=== PATIENT | female | born 2000 | race Hispanic/Latino ===

== ENCOUNTER 2025-05-24 23:21 | Observation (INO) | payer OTHER, SELFPAY ==
[2025-05-24 19:27] VITALS: BP 126/83
[2025-05-24 20:32] VITALS: BMI 34.4
[2025-05-24 20:34] VITALS: BP 133/89
[2025-05-24] MEDS: PERCOCET 5/325 1 TABLET PO (20:57)
[2025-05-24] MEDS: MOTRIN 600 MG PO (20:58)
--- NOTE | 2025-05-24 21:44 | ED.SKININJ ---
HPI-Injury
<Ana Luisa Magallanes, GENERAL MANA[employer] [employer] - Last Filed: 05/24/25 22:56>
General
Chief Complaint: Ear Problem
Time Seen by Provider: 05/24/25 20:07
History of Present Illness-Injury
Initial Injury comments:
24-year-old female with no past medical history states that a week ago she developed discomfort in her right ear that gradually became worse and 3 days ago it was unbearable pain. She went to urgent care and was given cefprozil 500 mg twice daily
and has had a total of 6 doses with worsening symptoms. She denies fever, denies N/V.
She states the ear hurts, behind the ear hurts and the right side of her neck hurts, it hurts to swallow, the ear has been draining purulent drainage.
Past History
<Ana Luisa Magallanes, GENER[employer] [address] [employer] - Last Filed: 05/24/25 22:56>
Past History
ED Past Medical History: None
Social History
Tobacco: Non-smoker
Alcohol: None
Personal: Single
Living: with roommate
Employment: Employed
Review of Systems
<Ana Luisa Magallanes, GENER[employer] [employer] - Last Filed: 05/24/25 22:56>
Review of Systems
Allergies reviewed?: Yes
All Other Systems: ROS reviewed and negative except as documented in HPI and ROS
Constitutional: Denies fever or chills
EENT: Reports sore throat (hurts to swallow, right ear pain, behind ear pain) and other (Purulent drainage from right ear)
Respiratory: Denies cough or trouble breathing
Cardiac: Denies chest pain
ABD/GI: Denies abdominal pain, nausea, vomiting or diarrhea
Skin: Reports no symptoms
Neurological: Reports headache
Phy Exam
<Ana Luisa Magallanes, [employer] [address] [employer] - Last Filed: 05/24/25 22:56>
Physical Exam
Physical Exam:
GENERAL: Moderate distress, crying due to significant right ear pain.. A&Ox3.
CONSTITUTIONAL: Afebrile.
EYES: clear, conjunctivae normal, tearful
ENMT: moist mucus membranes, no trismus, pharynx nl. Right ear canal with yellowish exudate dripping out of the ear. The canal is swollen, a small amount of the TM is visible
Neck: Supple, mild tender right submandibular lymphadenopathy
RESPIRATORY: Regular respirations, nonlabored, lungs clear.
CARDIOVASCULAR: Regular rate and rhythm, no murmurs, no rubs.
GI: Soft, nontender, normal BS
MUSCULOSKELETAL: Moves with ease. Well perfused.
SKIN: Warm, dry, pink
PSYCH: Normal mood and affect. Well kept, interactive and appropriate
NEUROLOGIC: Awake, alert and oriented. No focal neurological deficits
Course
<Ana Luisa Magallanes, [employer] [address] [employer] - Last Filed: 05/24/25 22:56>
Orders/Labs/Results
Orders:
Orders
05/24/25 20:47
Ibuprofen [Motrin] 600 mg PO NOW STA
Oxycodone/Acetaminophen [Percocet 5/325] 1 tablet PO NOW STA
05/24/25 21:40
CT Temporal-iac W/o Iv Contras Urgent
Comment:
Reason For Exam: severe R ear infection, tender mastoid
Test Result ONCE
05/24/25 21:45
Complete Blood Count/With Diff Urgent
05/24/25 21:46
0.9% Sodium Chloride 1000 ml [Nss] 1,000 ml IV BOLUS
05/24/25 22:28
Comprehensive Metabolic Panel Urgent
HCG, Serum Qualitative Screen Urgent
05/24/25 22:34
Ofloxacin [Ocuflox] See Dose Instructions OTIC NOW STA
05/24/25 22:35
Cefepime HCl [Maxipime] 1,000 mg IV NOW STA
05/24/25 22:42
Sterile Water [Sterile Water For Injection] 10 ml .ROUTE .STK-MED ONE
05/24/25 22:44
ENT CONSULT Urgent
Consulting Provider: Teresa Nunez
Was physician already notified: Yes
Reason for Consult: Otitis media, otitis externa, mild mastoiditis, failing outpatient antibiot
Abnormal Lab Results
05/24/25
21:45
WBC 14.2 H 10^3/uL
(4.8-10.8)
MCH 31.1 H pg
(27.0-31.0)
Abs Immat Gran (auto) 0.1 H 10^3/uL
(0-0.05)
Absolute Neuts (auto) 11.1 H 10^3/uL
(1.4-6.5)
Absolute Monos (auto) 1.1 H 10^3/uL
(0.1-0.6)
Neutrophils % 78.0 H %
(42.2-75.2)
Lymphocytes % 12.6 L %
(20.5-51.1)
05/24/25 21:45
Vital Signs
Initial and Last Documented VS:
Initial Vital Signs
Temp Pulse Resp BP Pulse Ox
98.8 F 101 18 126/83 99
05/24/25 19:27 05/24/25 19:27 05/24/25 19:27 05/24/25 19:27 05/24/25 19:27
Last Documented Vital Signs
Temp Pulse Resp BP Pulse Ox
98.8 F 114 16 116/77 100
05/24/25 19:27 05/24/25 22:30 05/24/25 22:30 05/24/25 22:30 05/24/25 22:30
<Edi Chmapagne MD - Last Filed: 05/24/25 22:37>
Orders/Labs/Results
Orders:
Orders
05/24/25 20:47
Ibuprofen [Motrin] 600 mg PO NOW STA
Oxycodone/Acetaminophen [Percocet 5/325] 1 tablet PO NOW STA
05/24/25 21:40
CT Temporal-iac W/o Iv Contras Urgent
Comment:
Reason For Exam: severe R ear infection, tender mastoid
Test Result ONCE
05/24/25 21:45
Complete Blood Count/With Diff Urgent
05/24/25 21:46
0.9% Sodium Chloride 1000 ml [Nss] 1,000 ml IV BOLUS
05/24/25 22:28
Comprehensive Metabolic Panel Urgent
HCG, Serum Qualitative Screen Urgent
05/24/25 22:34
Ofloxacin [Ocuflox] See Dose Instructions OTIC NOW STA
05/24/25 22:35
Cefepime HCl [Maxipime] 1,000 mg IV NOW STA
05/24/25 22:42
Sterile Water [Sterile Water For Injection] 10 ml .ROUTE .STK-MED ONE
05/24/25 22:44
ENT CONSULT Urgent
Consulting Provider: Teresa Nunez
Was physician already notified: Yes
Reason for Consult: Otitis media, otitis externa, mild mastoiditis, failing outpatient antibiot
Abnormal Lab Results
05/24/25
21:45
WBC 14.2 H 10^3/uL
(4.8-10.8)
MCH 31.1 H pg
(27.0-31.0)
Abs Immat Gran (auto) 0.1 H 10^3/uL
(0-0.05)
Absolute Neuts (auto) 11.1 H 10^3/uL
(1.4-6.5)
Absolute Monos (auto) 1.1 H 10^3/uL
(0.1-0.6)
Neutrophils % 78.0 H %
(42.2-75.2)
Lymphocytes % 12.6 L %
(20.5-51.1)
05/24/25 21:45
Vital Signs
Initial and Last Documented VS:
Initial Vital Signs
Temp Pulse Resp BP Pulse Ox
98.8 F 101 18 126/83 99
05/24/25 19:27 05/24/25 19:27 05/24/25 19:05/24/25 19:05/24/25 19:27
Last Documented Vital Signs
Temp Pulse Resp BP Pulse Ox
98.8 F 114 16 116/77 100
05/24/25 19:27 05/24/25 22:30 05/24/25 22:30 05/24/25 22:30 05/24/25 22:30
<Ana Luisa Magallanes, GENER[employer] MA[employer] [address] [employer] - Last Filed: 05/24/25 22:56>
MDM/Problems Addressed
MDM/Problems Addressed:
24-year-old female with no past medical history states that a week ago she developed discomfort in her right ear that gradually became worse and 3 days ago it was unbearable pain. She went to urgent care and was given cefprozil 500 mg twice daily
and has had a total of 6 doses with worsening symptoms. She denies fever, denies N/V.
She states the ear hurts, behind the ear hurts and the right side of her neck hurts, it hurts to swallow, the ear has been draining purulent drainage.
Afebrile
CBC: WBC 14.2
CMP pending
CAT scan of the temporal area radiology report reviewed: IMPRESSION: Soft tissue density in the right external ear canal, resulting in significant narrowing, suggestive of right otitis externa. There is also soft tissue density within the right
middle ear, suggesting right otitis media.
Mild opacification of the right mastoid air cells, suggesting mild right mastoiditis. No evidence for bony destruction.
Case discussed with Dr. Champagne who evaluated patient, agrees that patient should be admitted for IV antibiotics as she is failing outpatient antibiotics
Hospitalist and ENT Dr. Nunez notified of admission.
Patient is more comfortable after Percocet and ibuprofen.
IV antibiotics started, Antibiotic ear drops started.
<Ana Luisa Magallanes [address] [employer] - Last Filed: 05/24/25 22:56>
*Pulse Oximetry
SaO2: 100
Oxygen Mode of Delivery: Room air
Patient hypoxic: no
*Critical Care Note
Total Time (30-74mins, 75-104mins- exclusive of procedures): Not Applicable
ED Attending Note
<Ana Luisa Magallanes, [employer] [address] [employer] - Last Filed: 05/24/25 22:56>
-
Portions of this chart may have been created with voice recognition software.� Occasional wrong word or��sound alike� substitutions may have occurred due to the inherent limitations of voice recognition software.
<Edi Champagne MD - Last Filed: 05/24/25 22:37>
ED Attending Note
Patient seen and examined by attending physician: Yes
I performed the substantive portion of visit, reviewed & personally made and approve the management plan that is documented in note by myself or EDGAR.: Yes
ED Attending Note:
Patient with progressive right ear pain and drainage over 3 to 4 days. Started cephalosporin a day and a half ago. Some systemic symptoms.
On exam patient is nontoxic. Drainage from the right ear with swelling of the pinna and discharge in the canal. Tenderness over the right mastoid.
Labs shows a leukocytosis. CT scan shows right otitis media externa and mastoiditis.
Warrants inpatient IV antibiotics. Drops responsive to Pseudomonas coverage.
Discharge Plan
Departure
Patient Disposition: Admit
Date of Disposition: 05/24/25
Time of Disposition: 22:36
Admit to: Med/Surg
Presentation/result/management discussed w/ accepting MD/DO: Hospitalist
Condition: Fair
Discharge Problem:
Acute Otitis Externa, Acute otitis media, Mastoiditis of right side
Prescriptions:
No Action
cefprozil 500 mg Tablet
500 mg PO BID
acetaminophen [Tylenol Ex Str Rapid Release] 500 mg Tablet
1,000 mg PO Q6H PRN (Reason: pain)
ibuprofen [Advil] 200 mg Tablet
400 mg PO Q6H PRN (Reason: pain)
Referrals:
Andi Nicole MD [Family Provider, Internal Medicine]
Interventions
Interventions:
*Risk Screen - Suicide Last Done: 05/24/25 19:24
*General Assessment Last Done: 05/24/25 19:24
*Neglect/Abuse Screening Last Done: 05/24/25 19:24
*ED- Fall Risk Assessment Last Done: 05/24/25 19:24
*ED COVID-19 Vaccine History Last Done: 05/24/25 19:24
Discharge Date and Time
Print Language: BAHRAINI
[2025-05-24] MEDS: NSS 1000 IV (21:51)
[2025-05-24 22:02] LABS: Hematocrit 39.2 % (37.0-47.0); Hemoglobin 13.3 g/dL (12.0-16.0); Mean Corp Hgb Conc. 33.9 g/dL (33.0-37.0); Mean Corpuscular Volume 91.6 fL (81.0-99.0); Nucleated Red Blood Cells % 0 %; Platelet Count 204 10^3/uL (130-400); Red Cell Dist. Width 12.3 % (11.5-14.5)
[2025-05-24 22:30] VITALS: BP 116/77
--- NOTE | 2025-05-24 22:43 | HPS.HSE ---
Family Physician
-
Family Physician: Andi Nicole MD
Chief Complaint
-
Rt ear discomfort
History of Present Illness
24F No PMHx seen at ER:
- a week ago onset of discomfort in her right ear that gradually became worse and 3 days ago it was unbearable pain.
- seen at urgent care and was given cefprozil 500 mg twice daily and has had a total of 6 doses with worsening symptoms.
- She denies fever, denies N/V.
- behind the ear hurts and the right side of her neck hurts, it hurts to swallow, the ear has been draining purulent drainage.
Medical History
Past Medical History
Past Medical History: Reports None
Past Surgical History: Reports None
Social History
Tobacco: Non-smoker
Alcohol: None
Personal: Single
Employment: Employed
Family History
Family History: Not pertinent
Allergies / Home Medications
Allergies reflects when Allergies were last updated in [employer].
Home Medications with original date entered in [employer]
Allergy/Medication List:
Allergies
Allergy/AdvReac Type Severity Reaction Status Date / Time
No Known Allergies Allergy Verified 05/24/25 19:27
Home Medications
acetaminophen 500 mg tablet 1,000 mg PO Q6H PRN pain 05/24/25
cefprozil 500 mg tablet 500 mg PO BID 05/24/25
ibuprofen 200 mg tablet (Advil) 400 mg PO Q6H PRN pain 05/24/25
Review of Systems
-
Constitutional: Reports No Symptoms
EENT: Reports See HPI
Respiratory: Reports No Symptoms
Cardiac: Reports No Symptoms
Abdomen/GI: Reports No Symptoms
: Reports No Symptoms
Musculoskeletal: Reports No Symptoms
Skin: Reports No Symptoms
Neurological: Reports No Symptoms
Endocrine: Reports No Symptoms
Hematologic/Lymphatic: Reports No Symptoms
Psych: Reports No Symptoms
Physical Exam
Vital Signs
Vital Signs
Temp Pulse Resp BP Pulse Ox
98.8 F 114 16 116/77 100
05/24/25 19:27 05/24/25 22:30 05/24/25 22:30 05/24/25 22:30 05/24/25 22:30
Physical Exam
General: Other (Moderate distress, crying due to significant right ear pain..)
HEENT: Moist mucous membranes and Other (Right ear ext auditory meatus canal- yellowish exudate dripping out of the ear. The canal is swollen, a small amount of the TM is visible)
Respiratory: Clear
Cardiac: S1/S2 and Regular Rhythm
GI: Soft, Non Tender and Non Distended
Rectal: Deferred by Provider
Genito-urinary: Deferred by me
Musculoskeletal: No Edema
Skin: Warm and Dry
Neuro: AO x 3
Psych: Anxious
Laboratory Results
-
05/24/25 21:45
Laboratory Results
Total Bilirubin Cancelled 05/24/25 21:45
AST Cancelled 05/24/25 21:45
ALT Cancelled 05/24/25 21:45
Alkaline Phosphatase Cancelled 05/24/25 21:45
Data Reviewed
-
CT Scan: Report Reviewed by me
Lab Data: Labs Reviewed by me
Impression/Plan
-
Relevant Data
05/24/25
21:45
WBC 14.2 H
Pending BMP
CT Temporal-iac W/o Iv Contrast
- Soft tissue density in the right external ear canal, resulting in significant narrowing, suggestive of right otitis externa.
- There is also soft tissue density within the right middle ear, suggesting right otitis media.
- Mild opacification of the right mastoid air cells, suggesting mild right mastoiditis. No evidence for bony destruction.
ASSESSMENT & PLAN
Acute R otitis externa - failed OP Cefprozil
- associated preauricular tragus severe tenderness and swelling plus post auricular moderate tenderness
- Associated CT suggestion of R otitis media.
- Mild opacification of the right mastoid air cells, suggesting mild right mastoiditis
- No evidence for bony destruction
- agree with IV CFP and Ofloxacin ear drops
- PRN NSAIDs
- ENT - Dr Nunez consulted - will see in AM
DVT Px: SCD
Full code
OBS MS
[2025-05-24] MEDS: MAXIPIME 1000 MG IV (22:45)
[2025-05-24] MEDS: OCUFLOX 10 DROP OTIC (22:45)
[2025-05-24 23:22] LABS: HCG, Serum Qualitative Screen Negative
[2025-05-24 23:25] LABS: ALT (SGPT) 23 U/L (0-35); AST (SGOT) 17 U/L (14-36); Albumin 4.1 g/dl (3.5-5.0); Alkaline Phosphatase 60 U/L (38-126); Blood Urea Nitrogen 6 mg/dl (7-17); Calcium 8.5 mg/dl (8.4-10.2); Carbon Dioxide 21 mmol/L (22-30); Chloride 109 mmol/L (98-107); Estimated Creatinine Clearance > 125 ml/min; Glucose 120 mg/dl (70-99); Potassium 4.0 mmol/L (3.5-5.1); Sodium 137 mmol/L (135-145); Total Protein 7.3 g/dl (6.3-8.2); eGFR > 60.00
--- NOTE | 2025-05-25 00:15 | PTCARENOTE ---
Pt arrived from ED via wheelchair. aaox3, cooperative. oob with steady gait. Pt states 'My ear pain is coming back.' Krystina ZAVALA notified, dilaudid ordered. oriented to room. call sandhu within reach.
[2025-05-25 00:21] VITALS: BP 115/72
[2025-05-25] MEDS: NSS 1000 IV (01:07)
[2025-05-25] MEDS: DILAUDID 0.25 MG IV ×2 (01:23→04:28)
[2025-05-25] MEDS: MAXIPIME 2000 MG IV ×3 (04:22→20:25)
[2025-05-25] MEDS: STERILE WATER FOR INJECTION 10 ML IV ×3 (04:22→20:25)
[2025-05-25] MEDS: MOTRIN 400 MG PO ×3 (04:27→21:56)
--- NOTE | 2025-05-25 06:53 | W.PN.UPDATE ---
Update Note
Progress Note Update
Dilaudid IV x2 given for left ear pain unrelieved by tylenol and ibuprofen.
[2025-05-25 07:54] LABS: Hematocrit 35.8 % (37.0-47.0); Hemoglobin 12.3 g/dL (12.0-16.0); Mean Corp Hgb Conc. 34.4 g/dL (33.0-37.0); Mean Corpuscular Volume 91.8 fL (81.0-99.0); Platelet Count 189 10^3/uL (130-400); Red Cell Dist. Width 12.4 % (11.5-14.5)
[2025-05-25] MEDS: PROTONIX 40 MG PO (07:59)
[2025-05-25] MEDS: OCUFLOX 1 DROP RIGHT EAR ×2 (07:59→20:27)
[2025-05-25 08:17] VITALS: BP 121/75
[2025-05-25] MEDS: TYLENOL 1000 MG PO (10:17)
--- NOTE | 2025-05-25 13:10 | W.PN.HOSP.TC ---
Today's Communication/Plan
-
Antibiotics. Pain control.
Assessment / Plan
Assessment / Plan
Physical exam:
General: Well Developed, Well Nourished and some apparent Distress
HEENT: Right ear inflamed/infected. Normocephalic, Atraumatic and Moist Mucous Membranes
Respiratory: Clear to Auscultation; Negative Wheezes, Rales or Rhonchi
Cardiac: Regular Rhythm and S1/S2
GI: Soft, Nontender and Nondistended
Musculoskeletal: No Clubbing, No Cyanosis and No Edema
Neuro: Awake, Alert and Oriented, no neurological deficit
Psych: Calm
A/P:
Severe otitis media:
On IV cefepime
On ofloxacin drops
Would add dexamethasone drops but awaiting for ENT eval
WBC 14.2-->12
Stop IV fluid
Continue pain control
We talked about discharge planning and she does not feel comfortable going home yet but will reevaluate later today and if not planning d/c in am.
Discharge planning once cleared by ENT and pain better controlled
GERD:
PPI
DVT prophylaxis:
SCDs
CODE STATUS:
Full code
Anticipated Discharge: Within 24 hours
Subjective/Interval History
-
Date of Service: May 25, 2025
Patient still having significant pain in the right ear but improved slightly overall. Afebrile
Objective Data
-
Labs:
Laboratory Results
05/25/25
07:25
WBC 12.5 H
Hgb 12.3
Hct 35.8 L
Plt Count 189
Vital Signs:
Vital Signs
Temp Pulse Resp BP Pulse Ox
99.2 F 101 16 121/75 99
05/25/25 08:17 05/25/25 08:17 05/25/25 08:17 05/25/25 08:17 05/25/25 08:17
I&O
05/24/25 05/25/25 05/26/25
06:59 06:59 06:59
Intake Total 240 / 240
Balance 240 / 240
--- NOTE | 2025-05-25 15:05 | CM ---
Pt admitted via the ED with significant, recurrent ear pain and drainage; seen at urgent care and prescribed oral ABX which did not help.
ENT consulted and will evaluate tomorrow.
Pt lives with her significant other in a split level home with 6 entry steps. She is typically (I) amb and adls. Works at the [employer] at [place].
Plan: Discharge to home with no identified needs pending medical work up.
PCP: Andi Nicole
Pharmacy: [facility] on [facility] in [place].
[2025-05-25] MEDS: TYLENOL 650 MG PO (16:02)
[2025-05-25 16:08] VITALS: BP 124/81
--- NOTE | 2025-05-25 16:59 | W.PN.ENT ---
Today's Communication
-
Otowick placed right ear, continue drops BID, dry ear precautions, ENT f/u on Wednesday 05/30.
Impression / Plan
-
Patient with right OE complete canal closure. Otowick placed. Please use floxin drops BID over the wick. Patient given pain meds, can use ibuprofen. Should use drops BID for at least 7 days, no water in the ear, follow up with ENT Wednesday 05/30. PLs
ask patient to call for appt [phone]. Full c/s to follow.
Subjective Data
-
Patient with recent sudden onset of right ear pain with drainage. Started on PO abx by urgent care. No otologic history.
Objective Data
-
Vital Signs
Temp Pulse Resp BP Pulse Ox
99.4 F 90 16 124/81 99
05/25/25 16:08 05/25/25 16:08 05/25/25 16:08 05/25/25 16:08 05/25/25 16:08
Intake & Output
05/24/25 05/25/25 05/26/25
06:59 06:59 06:59
Intake:
Oral fluids 240 / 240
Other:
Number of approximated MODERATE 1
amounts of urine
Lab Results
05/25/25 07:25
05/24/25 22:51
Calcium 8.5 mg/dl (8.4-10.2) 05/24/25 22:51
Total Bilirubin 0.5 mg/dl (0.2-1.3) 05/24/25 22:51
AST 17 U/L (14-36) 05/24/25 22:51
ALT 23 U/L (0-35) 05/24/25 22:51
Alkaline Phosphatase 60 U/L (38-126) 05/24/25 22:51
Physical Exam
-
GEN: Uncomfortable
HEENT: Left EAC clear, nl; Right EAC with severe edema, blood, cannot see TM, edema involves the auricle
Data Reviewed
-
Radiology Results: Report Reviewed and Image Reviewed
Micro Results: Report Reviewed
[2025-05-25] MEDS: ROXICODONE 5 MG PO (17:01)
[2025-05-25 23:00] VITALS: BP 115/71
[2025-05-26] MEDS: DILAUDID 0.25 MG IV (01:22)
[2025-05-26] MEDS: MAXIPIME 2000 MG IV ×2 (05:14→12:22)
[2025-05-26] MEDS: STERILE WATER FOR INJECTION 10 ML IV ×2 (05:14→12:23)
[2025-05-26] MEDS: MOTRIN 400 MG PO ×2 (05:36→12:44)
[2025-05-26 07:11] VITALS: BP 110/71
[2025-05-26 07:33] LABS: Hematocrit 36.5 % (37.0-47.0); Hemoglobin 12.4 g/dL (12.0-16.0); Mean Corp Hgb Conc. 34.0 g/dL (33.0-37.0); Mean Corpuscular Volume 90.8 fL (81.0-99.0); Nucleated Red Blood Cells % 0 %; Platelet Count 199 10^3/uL (130-400); Red Cell Dist. Width 12.2 % (11.5-14.5)
[2025-05-26 08:08] LABS: Blood Urea Nitrogen 7 mg/dl (7-17); Calcium 8.7 mg/dl (8.4-10.2); Carbon Dioxide 23 mmol/L (22-30); Chloride 107 mmol/L (98-107); Estimated Creatinine Clearance > 125 ml/min; Glucose 103 mg/dl (70-99); Potassium 4.1 mmol/L (3.5-5.1); Sodium 137 mmol/L (135-145); eGFR > 60.00
[2025-05-26] MEDS: OCUFLOX 1 DROP RIGHT EAR (09:10)
[2025-05-26] MEDS: PROTONIX 40 MG PO (09:10)
--- NOTE | 2025-05-26 11:06 | W.DCSUMMARY ---
Discharge Summary
Discharge Data
Date of Admission: 05/24/25
Date of Discharge: 05/26/25
Total time spent discharging patient (in min): 40
-
Pending Results: No
Hospital Course
Physical exam:
GENERAL : Patient is awake, alert, oriented x3
HEENT: Nonicteric sclerae, PERRLA, EOMI. Oropharynx clear. Moist mucous membranes. Conjunctivae appear well perfused.
CHEST: Chest wall is nontender.
HEART: Regular rate and rhythm without murmurs.
LUNGS: Clear to auscultation bilaterally.
ABDOMEN: Soft, positive bowel sounds, nontender, no organomegaly.
RECTAL: Deferred.
SKIN: No rash, no excessive bruising, petechiae, or purpura.
NEUROLOGIC: Cranial nerves II-XII intact without motor/sensory deficit.
Hospital course
Patient is 24 years old who admitted to the hospital with right otitis external/media, failed outpatient oral treatment,
On admission CT Temporal-iac W/o Iv Contrast
- Soft tissue density in the right external ear canal, resulting in significant narrowing, suggestive of right otitis externa.
- There is also soft tissue density within the right middle ear, suggesting right otitis media.
- Mild opacification of the right mastoid air cells, suggesting mild right mastoiditis. No evidence for bony destruction.
started on IV antibiotic, ENT consulted, patient was started on antibiotic eardrops, ENT placed otowick and advised to continue with the drops twice daily and follow-up with ENT on May 30.
During hospitalization patient was treated from the following
Severe otitis media:
On IV cefepime
On ofloxacin drops
Improved leukocytosis
Seen by ENT
Will be discharged on oral Augmentin and ofloxacin drops and follow-up as an 18 MondayMay 30
GERD:
PPI
DVT prophylaxis:
SCDs
CODE STATUS:
Full code
Total time spent on today's encounter was 40 minutes which included time spent in counseling the patient/family regarding diagnosis and treatment plan as listed above, goals of care, and symptom management. Case was discussed with nursing staff,
specialists, and care coordinators/case management. All labs and imaging personally reviewed by me. Remainder the time spent in detailed review of previous records, lab data, imaging, and other medical provider documentation.
Anticipated Discharge: Today
Discharge Plan
-
Patient Disposition: Home (Routine Discharge)
Discharge Diagnosis/Procedures: Severe right otitis media. Leukocytosis.
Otowick placed right ear,
Diet: Regular
Activity: As tolerated
Blood Work: Please PCP to order CBC, BMP within 1 to 2 weeks
Referrals:
Andi Nicole MD [Family Provider, Internal Medicine] - in less than 1 week
Teresa Nunez MD [Active, Otology] - 05/30/25
Referral Note: call for appt [phone]
Prescriptions:
New
ofloxacin 0.3 % Drops
1 drp RIGHT EAR BID 7 Days Qty: 10 0RF
amoxicillin-pot clavulanate 875-125 mg tablet
1 tab PO BID Qty: 14 0RF
Continued
acetaminophen 500 mg Tablet
1,000 mg PO Q6H PRN (Reason: pain)
ibuprofen [Advil] 200 mg Tablet
400 mg PO Q6H PRN (Reason: pain)
Discontinued
cefprozil 500 mg Tablet
500 mg PO BID
Discharge Orders:
Discharge Patient (As Directed); Ordered 05/26/25
Ordered By: Eliseo Ann
Discharge Date and Time
Print Language: TURKMEN
--- NOTE | 2025-05-26 11:24 | CM ---
CM reviewed chart and noted dc order
No dc needs noted
Discharge Disposition- home, no needs
[2025-05-26 11:55] VITALS: BP 118/64
[2025-05-26 13:55] VITALS: BP 118/64
== END 2025-05-26 13:53 | disposition home or self-care (01) ==
LOC: 3 WEST ACU 23:21
PROVIDERS: Hospitalist; Registered Nurse; ADMITTING PHYSICIAN Internal Medicine; ATTENDING PHYSICIAN General Practice; CONSULT PHYSICIAN Otolaryngology; EMERGENCY PHYSICIAN Emergency Medicine; FAMILY PHYSICIAN Internal Medicine
DX: H66.91 Otitis media, unspecified, right ear (principal); D72.829 Elevated white blood cell count, unspecified; K21.9 Gastro-esophageal reflux disease without esophagitis; Z79.899 Other long term (current) drug therapy
CPT/HCPCS: 70480; 80048; 80053; 84703; 85025; 85027; 96374; 99285; G0378